=== PATIENT | female | born 1975 | race Caucasian/White ===

== ENCOUNTER 2018-09-25 14:50 | Emergency (ER) | payer SELFPAY ==
[~2018-09-25] VITALS: Ht 167.6 cm; Wt 128.0 kg
[2018-09-25 14:54] VITALS: BP 150/84
== END 2018-09-25 15:21 | disposition home or self-care (01) ==
LOC: ED 15:20
DX: H93.8X1 Other specified disorders of right ear (principal); I10 Essential (primary) hypertension; E78.5 Hyperlipidemia, unspecified; E11.9 Type 2 diabetes mellitus without complications
CPT/HCPCS: 99281